=== PATIENT | female | born 1945 | race Asian ===

== ENCOUNTER → 2021-06-30 | Day surgery (SDC) | payer MEDICARE, OTHER ==
[~2021-06-30] VITALS: Ht 157.5 cm; Wt 60.0 kg
[~2021-06-30] MED LIST: IV RINGERS,LACTATED 1000ML 1,000 ML IV SCH; LOSA-73 PO; METF500T16 PO; METO-239 PO; PROPOFOL 10 MG/ML (20ML) VIAL. IV ONE; TRAZ-118 PO
[2021-06-30 08:22] VITALS: BP 177/87
[2021-06-30 09:31] VITALS: BP 156/95
--- NOTE | 2021-06-30 09:54 | HP ---
ADMIT DATE: 06/30/2021 REASON FOR CONSULTATION: History of colonic polyps. HISTORY OF PRESENT ILLNESS: This is a 75-year-old female whose past medical history is significant for hypertension, diabetes, history of colonic polyps, diverticulosis, seen for interval colon exam. Bowel habits are regular without diarrhea or constipation. There has been no melena or hematochezia and there has been no bleeding. Weight and appetite are stable. She is otherwise without additional complaints. PAST MEDICAL HISTORY: Hypertension, diabetes, history of colon polyps, and history of Schatzki's ring. ALLERGIES: None. MEDICATIONS: Include losartan, metformin, metoprolol, and trazodone. FAMILY AND SOCIAL HISTORY: Significant for esophageal stomach cancer in mother and father. Nonsmoker and nondrinker. PAST SURGICAL HISTORY: Eye surgery and thyroid surgery. REVIEW OF SYSTEMS: Per records. PHYSICAL EXAMINATION: GENERAL: Reveals a well-nourished, well-developed female who is alert, cooperative, in no acute distress. VITAL SIGNS: Temperature is 98.9, pulse 71, respirations 20. LUNGS: Clear. CARDIOVASCULAR: Reveals an S1, S2, without S3, S4 or appreciable murmur. ABDOMEN: Reveals a soft abdomen, normal bowel sounds, without appreciable hepatosplenomegaly. IMPRESSION AND RECOMMENDATIONS: History of colonic polyps. Surveillance exam is recommended at this time. Risks and benefits of procedure have been previously discussed. The patient is willing to proceed. RUFINA STOREY: Lisa TID: [id number]
== END | disposition home or self-care (01) ==
LOC: SURG 07:50
PROVIDERS: ATTEND Internal Medicine Gastroenterology
DX: Z12.11 Encounter for screening for malignant neoplasm of colon (principal); K64.0 First degree hemorrhoids; K57.30 Diverticulosis of large intestine without perforation or abscess without bleeding; K63.89 Other specified diseases of intestine; I10 Essential (primary) hypertension; E11.9 Type 2 diabetes mellitus without complications; Z79.84 Long term (current) use of oral hypoglycemic drugs; Z79.899 Other long term (current) drug therapy; Z98.890 Other specified postprocedural states; Z86.010 Personal history of colon polyps; Z80.0 Family history of malignant neoplasm of digestive organs
CPT/HCPCS: G0105; J2704; 45378